=== PATIENT | female | born 1960 ===

== ENCOUNTER → 2017-11-30 | Outpatient (CLI) | payer BC ==
[~2017-11-30] MED LIST: MULT-820 PO
--- NOTE | 2017-11-30 16:38 | RADIOLOGY IMAGING REPORT ---
[place] [facility] [place] NAME: JOSS ARGUELLES : [id number] MR: [id number] V: [id number] EXAM DATE: [id number] ORDERING PHYSICIAN: SUE RANDALL TECHNOLOGIST: Gaby Moreau PROCEDURE:BILATERAL DIGITAL SCREENING MAMMOGRAM WITH CAD ASSISTED INTERPRETATION & 3D TOMOSYNTHESIS COMPARISON:Prior mammograms 10/03/16. INDICATIONS:SCREENING FINDINGS: Dense heterogeneous fibroglandular tissue is seen throughout the breasts. The parenchymal pattern has remained stable allowing for difference in mammographic technique & patient positioning. There is no evidence of malignant appearing mass, malignant appearing calcifications or other secondary sign of malignancy in either breast. DIAGNOSTIC CATEGORY 1--NEGATIVE. RECOMMENDATIONS: ROUTINE MAMMOGRAM AND CLINICAL EVALUATION. IMPRESSION: BIRADS 1: Negative No significant abnormality is seen. Dictated by: Renate Condon M.D. on 11/30/2017 at 16:13 Transcribed by: JEWELL on 11/30/2017 at 16:26 Approved by: Renate Condon M.D. on 11/30/2017 at 16:37 [facility]
== END ==
LOC: MAMO 01:45
PROVIDERS: ATTEND Family Medicine
DX: Z12.31 Encounter for screening mammogram for malignant neoplasm of breast (principal)
CPT/HCPCS: 77063; 77067